=== PATIENT | male | born 1990 | race African-American/Black ===

== ENCOUNTER 2019-03-31 20:34 | Emergency (ER) | payer SELFPAY ==
[~2019-03-31] VITALS: Ht 198.1 cm; Wt 145.1 kg
[2019-03-31 20:34] VITALS: BP_SYST 146
--- NOTE | 2019-03-31 20:35 | NUR ---
Placed in room 2. Placed on manager cardiac, blood pressure machine and pulse oximeter. To gown for exam. Side rails up.
--- NOTE | 2019-03-31 20:40 | NUR ---
Pt C/O chest pain and leg pain x 3 days worsening tonight at dinner. 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 Pt denies any increased physical activity, SOB, N/V, or any other symptoms at this time. Pt is able to ambulate to bed without assistance. Will continue to monitor.
--- NOTE | 2019-03-31 20:55 | NUR ---
ER Dr. Bermudez at bedside examining patient.
[2019-03-31] MEDS ORDERED: NACL 0.9% 1,000 ML IV ONE ×2 (20:58→23:33)
[2019-03-31] MEDS ORDERED: DIPHENHYDRAMINE INJ 50 MG/ML VIAL IVP ONE ×2 (21:00→23:15)
[2019-03-31] MEDS ORDERED: MORPHINE 4 MG/ML INJ. SYRINGE IVP ONE ×2 (21:00→23:15)
--- NOTE | 2019-03-31 21:40 | NUR ---
Pt has been medicated for his symptoms. No adverse effects noted at this time. Will continue to monitor.
[2019-03-31 21:51] LABS: BASOPHILS # (AUTO) 0.1 K/uL (0.0-0.2); BASOPHILS % (AUTO) 0.8 % (0.0-2.0); EOSINOPHILS # (AUTO) 0.1 K/uL (0.0-0.4); EOSINOPHILS % (AUTO) 0.9 % (0.0-4.0); HEMATOCRIT 40.8 % (36-54); HEMOGLOBIN 13.2 g/dL (14.0-18.0); LYMPHOCYTES # (AUTO) 2.3 K/uL (1.0-5.5); LYMPHOCYTES % (AUTO) 23.8 % (20.5-51.5); MEAN CORPUSCULAR HEMOGLOBIN 23 pg (27-31); MEAN CORPUSCULAR HGB CONC 32 % (32-36); MEAN CORPUSCULAR VOLUME 72 fL (79.0-98.0); MONOCYTES # (AUTO) 1.1 K/uL (0.0-1.0); MONOCYTES % (AUTO) 11.5 % (1.7-9.3); NEUTROPHILS # (AUTO) 6.1 K/uL (1.8-7.7); PLATELET COUNT (AUTO) 287 K/uL (130-430); RED BLOOD CELL COUNT(AUTO) 5.68 MIL/uL (4.2-6.2); RED CELL DISTRIBUTION WIDTH 17.7 % (9.0-15.0); WHITE BLOOD COUNT (AUTO) 9.7 K/uL (4.8-10.8)
[2019-03-31] MEDS ORDERED: ONDANSETRON HCL 4 MG/2 ML VIAL IVP ONE ×2 (22:00→23:15)
[2019-03-31 22:03] LABS: INR 0.9 (0.80-1.20); PROTHROMBIN TIME 9.4 SECS (9.5-12.5)
[2019-03-31 22:15] LABS: CREATININE 1.09 mg/dL (0.55-1.30); POTASSIUM 4.1 mmol/L (3.5-5.1)
--- NOTE | 2019-03-31 22:17 | NUR ---
Pt is sleeping in bed and states medication has reduced his pain level. Will continue to monitor.
[2019-03-31 22:21] LABS: ALBUMIN 3.7 g/dL (3.4-4.8); TOTAL BILIRUBIN 0.4 mg/dL (0.0-1.0)
--- NOTE | 2019-03-31 23:38 | NUR ---
Pt is resting in bed and has been medicated for symptoms. Will continue to monitor.
[2019-04-01] MEDS ORDERED: DIPHENHYDRAMINE INJ 50 MG/ML VIAL IVP ONE ×3 (00:45→04:15)
[2019-04-01] MEDS ORDERED: MORPHINE 4 MG/ML INJ. SYRINGE IVP ONE ×3 (00:45→04:00)
--- NOTE | 2019-04-01 00:56 | NUR ---
Pt is sleeping in bed, no acute distress noted at this time. Will continue to monitor.
[2019-04-01 01:08] LABS: BILIRUBIN,URINE NEGATIVE (NEGATIVE); BLOOD, URINE NEGATIVE (NEGATIVE); CLARITY/URINE CLEAR (CLEAR); COLOR,URINE YELLOW (YELLOW); GLUCOSE,URINE NEGATIVE (NEGATIVE); KETONES,URINE NEGATIVE (NEGATIVE); LEUKOCYTE ESTERASE ,URINE NEGATIVE (NEGATIVE); NITRITE, URINE NEGATIVE (NEGATIVE); PH,URINE 5.5 (5.0-8.0); PROTEIN URINE NEGATIVE (NEGATIVE); UROBILINOGEN,URINE 0.2 (0.2-1.0)
--- NOTE | 2019-04-01 02:11 | NUR ---
Pt is sleeping in bed, no acute distress noted at this time. Will continue to monitor.
--- NOTE | 2019-04-01 03:06 | NUR ---
Pt has been medicated for persistent pain. Will continue to monitor.
--- NOTE | 2019-04-01 04:10 | NUR ---
Pt is requesting another dose of Morphine and Benadryl prior to discharge. Dr. Bermudez aware
[2019-04-01 04:35] VITALS: BP_SYST 132
--- NOTE | 2019-04-01 04:35 | NUR ---
Patient given written and verbal discharge instructions and verbalizes understanding. ER MD discussed with patient the results and treatment provided. Patient in stable condition. ID arm band removed. IV catheter removed intact and dressing applied, no active bleeding. Patient educated on pain management and to follow up with PMD. Pain Scale 0. Opportunity for questions provided and answered. Medication side effect fact sheet provided.
== END 2019-04-01 04:35 | disposition home or self-care (01) ==
LOC: SED 20:34
DX: R07.9 Chest pain, unspecified (principal); D57.3 Sickle-cell trait
CPT/HCPCS: 36415; 71045; 80053; 81003; 83690; 83880; 84484; 85025; 85610; 85730; 93005; 96374; 96375; 96376 ×2; 99284; J1200 ×2; J2270 ×2; J2405; J7030; J7040